=== PATIENT | male | born 1990 | race Caucasian/White ===

== ENCOUNTER 2016-12-15 10:14 | Emergency (ER) | payer BC, MEDICAID ==
[2016-12-15 10:45] LABS: Hematocrit 44.8 % (42.0-52.0); Hemoglobin 15.9 gm/dL (13.5-18.0); Mean Cell Volume 86.8 fl (78-100); Mean Corpuscular Hemoglobin 30.8 pg (27-31); Mean Corpuscular Hgb Conc 35.5 g/dl (32-36); Mean Platelet Volume 9.7 fl (6.0-9.5); Neutrophil # 4.5 K/mm3 (1.3-6.0); Neutrophil % 52.8 % (42-75.0); Platelet Count 259 K/mm3 (150-450); Red Blood Count 5.16 M/mm3 (4.7-6.0); Red Cell Distribution Width 11.7 % (11.5-14.0); White Blood Count 8.4 K/mm3 (4.0-10.5)
--- NOTE | 2016-12-15 10:54 | ERNOTE ---
Neuro HPI ER Record Date of Service: 12/15/16 Presenting Symptoms: other - seizure Time Seen by Provider: 12/15/16 10:29 Source: patient, family Exam Limitations: no limitations Immunizations: IMMUNIZATION HX Immunizations Up to Date Yes Allergies/Adverse Reactions: Allergies Allergy/AdvReac Type Severity Reaction Status Date / Time penicillin G AdvReac Intermediate Hives Verified 12/15/16 10:25 Home Medications: HOME MEDICATIONS Citalopram Hydrobromide [Celexa] 40 mg PO DAILY 12/18/12 [Last Taken Unknown] Carbamazepine [Carbatrol] 200 mg PO QAM #30 cpmp.12hr 12/15/16 [Last Taken Unknown] Doxycycline Monohydrate 100 mg PO BID #20 tablet 12/15/16 [Last Taken Unknown] LORazepam [Ativan] 1 mg PO TID PRN #30 tab 12/15/16 [Last Taken Unknown] Propranolol HCl [Inderal Xl] 120 mg PO QAM 12/15/16 [Last Taken Unknown] Risperidone 2 mg PO DAILY 12/15/16 [Last Taken Unknown] Risperidone [Risperdal] 1 mg PO QAM 12/15/16 [Last Taken Unknown] Risperidone [Risperdal] 2 mg PO DAILY 12/15/16 [Last Taken Unknown] carBAMazepine [Tegretol] 300 mg PO QPM #45 tablet 12/15/16 [Last Taken Unknown] traZODone HCL [Desyrel] 200 mg PO HS 12/15/16 [Last Taken Unknown] - History of Present Illness Narrative: Pt. comes in with c/o two seizures this morning with hand tremors and non responsiveness. Mom states that seizures lasted for 20 minutes and 30 minutes. Mom states that pt. was awake sitting up when seizures occurred. Pt. states that he does not remember the events but remembers everything after. Pt. has a hx of seizures and sees a neurologist at [facility] but has not had any seizures in 8 years per mom. Pt. denies any SOB, CP, NVD, but does state that he has recently had a cold and has had a headache for the past three days. Mom denies any fevers for pt. Pt. propranolol recently increased to control increase in agitation and tremors. Pt. 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 Review of Systems - Review of Systems Constitutional: Present: no symptoms reported. Absent: recent illness, fever, chills, weakness, fatigue, malaise EYE: Present: no symptoms reported ENT: Present: nasal drainage. Absent: ear pain, nose pain, nose congestion, sore throat Respiratory: Present: no symptoms reported. Absent: shortness of breath, cough Cardiology: Present: no symptoms reported. Absent: chest pain, palpitations, claudication Gastrointestinal/Abdominal: Present: no symptoms reported. Absent: nausea, vomiting, diarrhea, abdominal pain Genitourinary: Present: no symptoms reported Musculoskeletal: Present: no symptoms reported. Absent: back pain, joint pain Skin: Present: no symptoms reported. Absent: rash, change in hair/nails Neurological: Present: headache. Absent: dizziness/light-headedness, numbness, tingling All Other Systems: All systems neg except as marked - Patient's Past Medical History Patient History - Medical: ADHD, Anxiety, Bipolar, Depression, Seizures - Family History Mother Family History - Medical: No pertinent hx Father Family History - Medical: No pertinent hx - Social History Living Situations: home Smoking Status: Current every day smoker Have you smoked in the past 12 months: Yes Do you dip or chew tobacco: No Alcohol Use: none Drug Use: none - Immunizations Immunizations Up to Date: Yes Physical Exam - Physical Exam General Appearance: Present: wd/wn, alert, no apparent distress Eye Exam: Normal inspection: bilateral, PERRL: bilateral, EOMI: bilateral Ears, Nose, Throat: Present: normal ENT inspection, hearing grossly normal, normal pharynx Neck: Present: normal inspection, nontender. Absent: lymphadenopathy (R), lymphadenopathy (L) Respiratory: Present: no respiratory distress, normal breath sounds, no accessory muscle use, chest nontender, lungs clear Cardiovascular/Chest: Present: regular rate, rhythm, no murmur, normal peripheral pulses Gastrointestinal/Abdominal: Present: normal bowel sounds, nontender, nondistended, soft, no organomegaly Back Exam: Present: normal inspection, normal range of motion, no CVA tenderness , no vertebral tenderness Extremity Exam: Present: normal inspection, non-tender, no edema, normal range of motion Neurological Exam: Present: alert, oriented, normal mood/affect, facial droop - normal for pt., motor weakness - R sided normal for pt. Skin Exam: Present: normal color, warm/dry. Absent: pallor, skin rash [place] Coma Scale - Assess Eye Opening: Spontaneous Motor: Obeys Commands Verbal: Oriented - Total Coma Scale Total: 15 ED Progress - Date and Time Seen: Date and Time: 12/15/16 12:29 Pt. with evidence of sinusitis and possible polyp as well as pharyngitis. As pt. states this is improving but do feel that it would be prudent to place on abx as this is likely bacterial and do feel that this could be the cause for pt. change in seizure pattern. 12/15/16 12:[address] [facility] neurology and they recommend increase tegratol by 100mg daily, ativan PRN, and have him follow up in clinic. 12/15/16 12:44 - Results and Orders Patient's Lab Results:: I have reviewed the patient's lab results. - Vital Signs Patient's Vital Signs:: I have reviewed the patient's vital signs. Vital Signs: Vital Signs 12/15/16 12/15/16 10:18 10:39 Temperature 36.1 C L Pulse Rate 105 H 103 H Respiratory 18 Rate Blood Pressure 132/71 O2 Sat by Pulse 94 Oximetry - CT/Ultrasound CT/Ultrasound Narrative: CT Head: IMPRESSION: 1. No acute intracranial hemorrhage or mass effect. 2. Stable encephalomalacic changes of the left temporal lobe. 3. Stable posttraumatic versus postsurgical change of the left temporal bone as above. 4. Opacification of the right maxillary sinus, with a polypoid findings straightening into the right nasal passage. Could represent chronic sinusitis or inverted polyp. Consider follow-up by ENT referral. 5. Soft tissue hypertrophy of the adenoids, encroaching into the nasopharynx. - Progress/Reassessment Chief Complaint: Seizure Activity Departure Clinical Impression: Seizure disorder Sinusitis, acute Qualifiers: Sinusitis location: maxillary Recurrence: non-recurrent Qualified Code(s): J01.00 - Acute maxillary sinusitis, unspecified - Departure Disposition: Home self-care Condition: Good Instructions: Sinusitis, Adult, [id number], Epilepsy Additional Instructions: Please follow iup with [facility] neurology next week and follow up with ENT of your choice when you can to evaluate sinusitis with polyp. Referrals: Julian Hatfield DO [Primary Care Provider] - Prescriptions: Carbamazepine [Carbatrol] 200 mg PO QAM #30 cpmp.12hr Doxycycline Monohydrate 100 mg PO BID #20 tablet LORazepam [Ativan] 1 mg PO TID PRN #30 tab PRN Reason: Seizures carBAMazepine [Tegretol] 300 mg PO QPM #45 tablet
[2016-12-15 11:04] LABS: Albumin * 3.9 gm/dl (3.4-5.0); Anion Gap 13.3 mmol/L (6.8-13.8); BUN/Creatinine Ratio 13.6 (9.0-21.6); Bilirubin, Total 0.3 mg/dL (0.0-1.1); Ca. Corrected For Albumin 8.9 mg/dL (8.4-10.2); Calcium * 9.1 mg/dL (7.9-10.9); Carbamazepine 5.8 mcg/mL (4.0-12.0); Carbon Dioxide 26.4 mmol/L (24-32.6); Magnesium 1.8 mg/dL (1.2-2.8); Phosphorus 4.7 mg/dL (2.2-4.2); Potassium 3.7 mmol/L (3.4-4.6); Total Protein 7.9 gm/dL (6.2-8.2)
[2016-12-15 11:06] LABS: Urine Bilirubin Negative (NEGATIVE); Urine Blood Negative /ul (NEGATIVE); Urine Ketone Negative (NEGATIVE); Urine Nitrite Negative (NEGATIVE); Urine Protein Negative (NEGATIVE); Urine Specific Gravity 1.025 SP.GR. (1.005-1.030); Urine Urobilinogen Normal (NORMAL)
[2016-12-15 11:16] LABS: Urine Appearance Clear; Urine Bacteria None Seen; Urine Color Yellow; Urine RBC None Seen /hpf (0-5); Urine WBC None Seen /hpf (0-5)
[2016-12-15 12:09] VITALS: BP 128/88
== END 2016-12-15 13:10 | disposition home or self-care (01) ==
LOC: ER 10:14
DX: G40.909 Epilepsy, unspecified, not intractable, without status epilepticus (principal); J01.00 Acute maxillary sinusitis, unspecified; F90.9 Attention-deficit hyperactivity disorder, unspecified type; F31.9 Bipolar disorder, unspecified